=== PATIENT | male | born 1990 | race Two or more races ===

== ENCOUNTER 2023-03-02 04:26 | Emergency (ER) | payer MEDICAID ==
[~2023-03-02] VITALS: Ht 167.6 cm; Wt 164.7 kg
[2023-03-02 04:49] LABS: Basophils # (auto) 0 10 ^3/uL (0-0.2); Eosinophils # (auto) 0.2 10 ^3/uL (0-0.8); Lymphocytes # (auto) 2.6 10 ^3/uL (0.4-5.4); Monocytes # (auto) 0.5 10 ^3/uL (0-1.3); Neutrophils # (auto) 5.5 10 ^3/uL (1.6-8.6); White Blood Cell 8.8 10^3/uL (4.4-10.8)
[2023-03-02 04:53] LABS: Basophils % (auto) 0.5 % (0.0-2.0); Hematocrit 43.1 % (41.0-53.0); Hemoglobin 13.9 g/dL (13.5-17.5); Lymphocytes % (auto) 29.6 % (10.0-50.0); Mean Corpuscular Hemoglobin 22.7 pg (28.0-32.0); Mean Corpuscular Hgb Conc. 32.2 g/dL (32.0-36.0); Mean Corpuscular Volume 70.5 fL (80.0-100.0); Monocytes % (auto) 5.3 % (0.0-12.0); Neutrophils % (auto) 62.6 % (37.0-80.0); Red Blood Cells 6.12 10^6/uL (4.5-5.90); Red Cell Distribution Width 17.2 % (11.8-14.3)
[2023-03-02 05:04] LABS: INR 0.95 (0.9-1.15); Partial Thromboplastin Time 26.6 SEC (24.5-34.5)
[2023-03-02 05:07] LABS: Alanine Aminotransferase 28 U/L (7-40); Albumin 4.4 g/dL (3.2-4.8); Alkaline Phosphatase 113 U/L (46-116); Anion Gap 7 (5-15); Aspartate Aminotransferase 15 U/L (13-40); BUN/Creatinine Ratio 11.1 (10.0-20.0); Bilirubin, Total 0.3 mg/dL (0.2-1.0); Blood Urea Nitrogen 7 mg/dL (9-23); Calcium 8.9 mg/dL (8.7-10.4); Carbon Dioxide 29 mmol/L (20-30); Chloride 106 mmol/L (98-107); Glucose 129 mg/dL (74-106); Magnesium 2.1 mg/dL (1.6-2.6); Potassium 3.7 mmol/L (3.5-5.1); Sodium 142 mmol/L (136-145); Total Protein 7.7 g/dL (5.7-8.2)
[2023-03-02] MEDS ORDERED: ASPirin 325 MG TAB PO ONE (07:45)
[2023-03-02] MEDS ORDERED: PRED20TA2 PO (08:29)
[2023-03-02 09:16] VITALS: BP 142/82; PULSE 76; RESP 17; O2SAT 93
== END 2023-03-02 09:56 | disposition home or self-care (01) ==
LOC: ER 04:26
DX: J98.4 Other disorders of lung (principal); B97.89 Other viral agents as the cause of diseases classified elsewhere; I10 Essential (primary) hypertension; E11.9 Type 2 diabetes mellitus without complications; Z79.899 Other long term (current) drug therapy
CPT/HCPCS: 36415; 71045; 80053; 83735; 83880; 84484; 85025; 85379; 85610; 85730; 93005

== ENCOUNTER 2023-05-06 23:56 | Emergency (ER) | payer MEDICAID ==
[~2023-05-06] VITALS: Ht 167.6 cm; Wt 168.9 kg
[~2023-05-06 23:56] MED LIST: PRED20TA2 PO
[2023-05-07 02:17] LABS: Lymphocytes # (auto) 2.6 10 ^3/uL (0.4-5.4); Lymphocytes % (auto) 30.4 % (10.0-50.0); Monocytes # (auto) 0.4 10 ^3/uL (0-1.3); Nucleated Red Blood Cells % 0.1 %
[2023-05-07 02:19] LABS: Basophils # (auto) 0 10 ^3/uL (0-0.2); Basophils % (auto) 0.5 % (0.0-2.0); Eosinophils # (auto) 0.2 10 ^3/uL (0-0.8); Eosinophils % (auto) 1.8 % (0.0-7.0); Hemoglobin 13.2 g/dL (13.5-17.5); Mean Corpuscular Hemoglobin 21.9 pg (28.0-32.0); Mean Corpuscular Hgb Conc. 31.5 g/dL (32.0-36.0); Mean Corpuscular Volume 69.6 fL (80.0-100.0); Monocytes % (auto) 4.2 % (0.0-12.0); Neutrophils # (auto) 5.5 10 ^3/uL (1.6-8.6); Neutrophils % (auto) 63.1 % (37.0-80.0); Red Blood Cells 6.04 10^6/uL (4.5-5.90); Red Cell Distribution Width 18.1 % (11.8-14.3); White Blood Cell 8.7 10^3/uL (4.4-10.8)
[2023-05-07 02:34] LABS: Alanine Aminotransferase 25 U/L (7-40); Alkaline Phosphatase 104 U/L (46-116); Anion Gap 8 (5-15); Aspartate Aminotransferase 12 U/L (13-40); BUN/Creatinine Ratio 12.7 (10.0-20.0); Bilirubin, Total 0.2 mg/dL (0.2-1.0); Blood Urea Nitrogen 9 mg/dL (9-23); Carbon Dioxide 26 mmol/L (20-30); Chloride 106 mmol/L (98-107); Glucose 330 mg/dL (74-106); Potassium 4.4 mmol/L (3.5-5.1); Sodium 140 mmol/L (136-145)
[2023-05-07 02:35] LABS: Anisocytosis Slight
[2023-05-07 02:36] LABS: Platelet Estimate Adequate
[2023-05-07] MEDS: InsuLIN REG 1unit/0.01ml Soln (100units/ml) SC ONE (04:12)
[2023-05-07 08:53] VITALS: BP 144/90; PULSE 78; RESP 19; TEMP 98.9; O2SAT 95
== END 2023-05-07 08:55 | disposition home or self-care (01) ==
LOC: ER 23:56
DX: E11.65 Type 2 diabetes mellitus with hyperglycemia (principal); I10 Essential (primary) hypertension
CPT/HCPCS: 36415; 71045; 80053; 82962; 85025; 85379; 96372; 99284; J1815

== ENCOUNTER 2023-06-13 10:11 | Emergency (ER) | payer MEDICAID ==
[~2023-06-13] VITALS: Ht 167.6 cm; Wt 165.5 kg
[2023-06-13 10:20] VITALS: TEMP 98
[2023-06-13 10:21] VITALS: BP 136/79; PULSE 87; RESP 18; O2SAT 100
[2023-06-13] MEDS: KETOROLAC TROMETH 60MG/2ML VIAL IM ONE (12:23)
[2023-06-13] MEDS: DexAMETHasone SOD PHOS 10MG/1ML VIAL INJ IM ONE (12:24)
[2023-06-13] MEDS ORDERED: NAP500T PO (12:34)
[2023-06-13] MEDS ORDERED: LIDO2SOL26 MT (12:34)
[2023-06-13] MEDS: PENICILLIN G BENZ 1,200,000 UNITS/2 ML SYRG IM ONE (12:50)
== END 2023-06-13 12:59 | disposition home or self-care (01) ==
LOC: ER 10:11
DX: J03.90 Acute tonsillitis, unspecified (principal); I10 Essential (primary) hypertension; E11.9 Type 2 diabetes mellitus without complications; Z79.899 Other long term (current) drug therapy
CPT/HCPCS: 96372; 99284; J0561; J1100; J1885